=== PATIENT | female | born 1985 | race Caucasian/White ===

== ENCOUNTER → 2024-04-17 | Outpatient (CLI) | payer BC ==
--- NOTE | 2024-04-18 00:04 | CT ---
EXAMINATION TYPE: CT lumbar spine wo con CT DLP: 444.3 mGycm, Automated exposure control for dose reduction was used. DATE OF EXAM: 04/17/2024 7:08 PM COMPARISON: None. CLINICAL INDICATION:Female, 39 years old with history of M54.50 LOW BACK PAIN, UNSPECIFIED; [facility], Lowe r back pain x 6 months, pain TECHNIQUE: Multiple axial images were obtained from the midportion of T11 through the sacroiliac oral nts. Soft tissue and bone windows in coronal and sagittal planes were obtained and reviewed. 3-D ref ormats of the bones were created on a separate workstation and submitted for review. Contrast used: mL of , (None, if empty). Oral contrast used: (None, if empty). FINDINGS: Alignment: There are 5 lumbar type vertebral bodies within normal alignment. Bone: No significant degenerative changes are appreciated. Discs: T12-L1: No spinal canal or neural foraminal stenosis is identified. L1-L2: No spinal canal or neural foraminal stenosis is identified. L2-L3: Mild circumferential disc bulge with mild effacement of anterior thecal sac. No neural foramin al stenosis is identified. L3-L4: Mild circumferential disc bulge with mild effacement of anterior thecal sac. Bilateral facet a rthropathy is seen resulting in mild neural foraminal stenosis left greater than right. L4-L5: Mild circumferential disc bulge with mild effacement of anterior thecal sac. Bilateral facet a rthropathy is seen resulting in mild neural foraminal stenosis left greater than right. L5-S1: Mild circumferential disc bulge with no significant spinal canal stenosis. Bilateral facet art hropathy is seen resulting in moderate left and mild right neural foraminal stenosis Other: None IMPRESSION: 1. No evidence for acute fracture. 2. Mild multilevel degenerative changes of the lumbar spine with no evidence for disc herniation. [facility], , 04/18/2024 12:02 AM
== END | disposition home or self-care (01) ==
LOC: RADCTMAIN 18:49
PROVIDERS: ATTEND Family Medicine
DX: M47.816 Spondylosis without myelopathy or radiculopathy, lumbar region (principal)
CPT/HCPCS: 72131